=== PATIENT | female | born 2000 | race Caucasian/White ===

== ENCOUNTER 2024-03-22 07:29 | Emergency (ER) | payer MEDICAID ==
[~2024-03-22] VITALS: Ht 167.6 cm; Wt 56.7 kg
[2024-03-22] MEDS ORDERED: CLINDAMYCIN 600 MG in IV D5W 100 ML IV ONE (08:00)
[2024-03-22] MEDS ORDERED: CEFTRIAXONE 1GM BAG (ER ONLY) 1 GM/50 ML PIGGYBACK IV ONE (08:00)
[2024-03-22] MEDS ORDERED: dexaMETHasone SOD PHOSPHATE 10 MG/ML VIAL MC ONE (08:00)
[2024-03-22] MEDS ORDERED: IOHEXOL-300 100 ML VIAL IV ONE (08:16)
[2024-03-22] MEDS ORDERED: IV NS 0.9% 250 ML IV ONE (08:16)
[2024-03-22] MEDS: CLINDAMYCIN 600 MG in IV NS 0.9% 46 ML IV ONE (08:45)
[2024-03-22] MEDS ORDERED: dexaMETHasone SOD PHOSPHATE 1 ML ONE (08:47)
[2024-03-22] MEDS: dexaMETHasone SOD PHOSPHATE 10 MG/ML VIAL IV ONE (08:53)
[2024-03-22] MEDS: CEFTRIAXONE 2 G in IV D5W 100 ML IV ONE (09:11)
[2024-03-22] MEDS ORDERED: KETOROLAC TROMETHAMINE INJ 30 MG/ML VIAL ONE (10:29)
[2024-03-22] MEDS ORDERED: LIDOCAINE VISCOUS 2% UD 15 ML UDC ONE (10:29)
[2024-03-22] MEDS: KETOROLAC TROMETHAMINE 15 MG/ML VIAL IV ONE (10:47)
[2024-03-22] MEDS: LIDOCAINE VISCOUS 2% UD 15 ML UDC MM ONE (10:48)
[2024-03-22] MEDS ORDERED: LIDOCAINE 1%-EPI 1:100,000 20 ML VIAL ONE (11:02)
[2024-03-22] MEDS ORDERED: AMOX-430 PO (11:16)
[2024-03-22] MEDS ORDERED: KETO10TA2 PO (11:16)
[2024-03-22] MEDS: LIDOCAINE 1%-EPI 1:100,000 50 ML VIAL IJ ONE (11:36)
[2024-03-22 11:38] VITALS: BP 118/78; TEMP 98.3; O2SAT 97
== END 2024-03-22 11:38 | disposition home or self-care (01) ==
LOC: ER 07:39
DX: J02.0 Streptococcal pharyngitis (principal); R07.0 Pain in throat; M54.2 Cervicalgia; Z60.2 Problems related to living alone
CPT/HCPCS: 99285; 42999; 96365; 70491; 96368; J1885; J3490 ×3; J1100; J0696; J7060; J7050; A6403; Q9967; A4223